=== PATIENT | male | born 1970 ===

== ENCOUNTER 2018-10-31 07:50 | Day surgery (SDC) | payer BC ==
--- OUTSIDE RECORDS SUMMARY | 2018-10-31 07:53 | XMS REPORT ---
:1970 Author Organization eClinicalWorks Care Team Providers Name Role Phone Ronal Martins Provider Role Unavailable Allergies No Known Allergies Problems Problem Type Condition Code Onset Dates Condition Status Assessment Low testosterone in male R79.89 Active Problem Mixed hyperlipidemia E78.2 Active Problem Decreased libido R68.82 Active Problem Essential hypertension I10 Active Problem Fatigue, unspecified type R53.83 Active Problem Tobacco use disorder F17.200 Active Problem Erectile dysfunction, unspecified N52.9 Active erectile dysfunction type Medications No Known Medications Results Name Result Date Reference Range Unit Abnormality Flag PROLACTIN ----PROLACTIN 6.0 20180925 2.0-18.0 ng/mL N Summary Purpose eClinicalWorks Submission
--- OUTSIDE RECORDS SUMMARY | 2018-10-31 07:53 | XMS REPORT ---
:1970 Author Organization [employer] Care Team Providers Name Role Phone Ronal Martins Provider Role Unavailable Allergies, Adverse Reactions, Alerts Substance Reaction Event Type N.K.D.A. Info Not Available Non Drug Allergy Problems Problem Type Condition Code Onset Dates Condition Status Assessment Erectile dysfunction, unspecified N52.9 Active erectile dysfunction type Assessment Essential hypertension I10 Active Assessment Mixed hyperlipidemia E78.2 Active Assessment Tobacco use disorder F17.200 Active Assessment Decreased libido R68.82 Active Assessment Fatigue, unspecified type R53.83 Active Problem Mixed hyperlipidemia E78.2 Active Problem Decreased libido R68.82 Active Problem Essential hypertension I10 Active Problem Fatigue, unspecified type R53.83 Active Problem Tobacco use disorder F17.200 Active Problem Erectile dysfunction, unspecified N52.9 Active erectile dysfunction type Medications Medication Code Code Instructions Start End Status Dosage System Date Date Amoxicillin ND 36411690749 875 MG Orally Active 1 tablet every 12 hrs Rosuvastatin ND 79007026924 10 MG Orally Active 1 tablet Calcium Once a day Diltiazem HCl CR NDC 0 180 MG/24HR Active 1 capsule Orally Once a on an day empty stomach in the morning Diltiazem HCl ER NDC 25958524895 180 MG Orally Sep 17, Active 1 capsule Once a day 2017 on an empty stomach in the morning Results No Known Results Summary Purpose eClinicalWorks Submission
--- OUTSIDE RECORDS SUMMARY | 2018-10-31 07:53 | XMS REPORT ---
:1970 Author Organization [employer]ClinicalWorks Care Team Providers Name Role Phone Ronal Martins Provider Role Unavailable Allergies, Adverse Reactions, Alerts Substance Reaction Event Type N.K.D.A. 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 Active Assessment Adult BMI 34.0-34.9 kg/sq m Z68.34 Active Problem Essential hypertension I10 Active Problem Adult BMI 34.0-34.9 kg/sq m Z68.34 Active Problem Tobacco use disorder F17.200 Active Problem Erectile dysfunction, unspecified N52.9 Active erectile dysfunction type Problem Mixed hyperlipidemia E78.2 Active Problem Decreased libido R68.82 Active Assessment Need for Tdap vaccination Z23 Active Assessment 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 Active Assessment Screening for colon cancer Z12.11 Active Assessment Need for pneumococcal vaccine Z23 Active Assessment Fatigue, unspecified type R53.83 Active Assessment Erectile dysfunction, unspecified N52.9 Active erectile dysfunction type Assessment Tobacco use disorder F17.200 Active Assessment Mixed hyperlipidemia E78.2 Active Assessment Decreased libido R68.82 Active Assessment Essential hypertension I10 Active Medications Medication Code Code Instructions Start End Status Dosage System Date Date Rosuvastatin [facility] 10379879309 10 MG Orally Active 1 tablet Calcium Once a day Chantix Starting [facility] 96788184207 0.5 MG X 11 & 1 Oct 08, Active as directed Month Rigoberto MG X 42 Orally 2019 as directed Diltiazem HCl ER ND 47125012680 180 MG Orally Active 1 capsule Once a day on an empty stomach in the morning Results Name Result Date Reference Range Unit Abnormality Flag HEMOGLOBIN A1c ----HEMOGLOBIN A1c 4.8 31639903 <5.7 % of total N Hgb LIPID PANEL WITH REFLEX TO DIRECT LDL ----NON HDL 141 50311417 <130 mg/dL (calc) H CHOLESTEROL ----CHOL/HDLC RATIO 3.9 37449326 <5.0 (calc) N ----CHOLESTEROL, 190 58490049 <200 mg/dL N TOTAL ----HDL CHOLESTEROL 49 56350884 >40 mg/dL N ----TRIGLYCERIDES 205 20991354 <150 mg/dL H ----LDL-CHOLESTEROL 109 06551623 mg/dL (calc) H URINALYSIS, COMPLETE W/REFLEX TO CULTURE ----KETONES 1+ 20181008 NEGATIVE A ----BILIRUBIN NEGATIVE 21091911 NEGATIVE N ----PROTEIN NEGATIVE 40199557 NEGATIVE N ----OCCULT BLOOD NEGATIVE 51472878 NEGATIVE N ----LEUKOCYTE NEGATIVE 20181008 NEGATIVE N ESTERASE ----WBC NONE SEEN 06771037 < OR=5 /HPF N ----NITRITE NEGATIVE 56859179 NEGATIVE N ----BACTERIA NONE SEEN 20181008 NONE SEEN /HPF N ----PH < OR=5.0 20181008 5.0-8.0 N ----HYALINE CAST NONE SEEN 20181008 NONE SEEN /LPF N ----GLUCOSE NEGATIVE 20181008 NEGATIVE N ----RBC NONE SEEN 20181008 < OR=2 /HPF N ----APPEARANCE CLEAR 20181008 CLEAR N ----SQUAMOUS NONE SEEN 01291388 < OR=5 /HPF N EPITHELIAL CELLS ----SPECIFIC GRAVITY 1.027 20181008 1.001-1.035 N ----COLOR YELLOW 20181008 YELLOW N Immunizations Vaccine Administration Date TDAP > 7 Years-Adacel Oct 08, 2018 PNEUMAVAX 23 Oct 08, 2018 Summary Purpose eClinicalWorks Submission
[2018-10-31] MEDS ORDERED: Ringers Lactate 1,000 ML IV ONE (08:05)
[2018-10-31] MEDS ORDERED: PROPOFOL 200 MG/20 ML VIAL IV ONE (09:26)
[2018-10-31] MEDS ORDERED: LIDOCAINE 1% MPF 5 ML VIAL ONE (09:26)
--- NOTE | 2018-10-31 09:45 | ENDO RPT ---
[address], [address] COLONOSCOPY PROCEDURE REPORT EXAM DATE: 10/31/2018 PATIENT NAME: Garrick Duron MR #: [id number] BIRTHDATE: 1970 ATTENDING: Mack Hernandez DR STATUS: outpatient COMPUTER SYSTEMS ARCHITECT: Ana Lewis RN, Kim Saenz, and Alicia Rodriges RN INDICATIONS: The patient is a 48 yr old Male here for a colonoscopy due to colon cancer screening PROCEDURE PERFORMED: Colonoscopy with biopsy - cold polypectomy MEDICATIONS: Per Anesthesia. ESTIMATED BLOOD LOSS: None CONSENT: The patient understands the risks and benefits of the procedure and understands that these risks include, but are not limited to: sedation, allergic reaction, infection, perforation and/or bleeding. Alternative means of evaluation and treatment include, among others: physical exam, x-rays, and/or surgical intervention. The patient elects to proceed with this endoscopic procedure. DESCRIPTION OF PROCEDURE: During intra-op preparation period all mechanical medical equipment was checked for proper function. Hand hygiene and appropriate measures for infection prevention was taken. Procedure, possible complications, alternatives including, but not limited to possibility of bleeding, perforation, tear, infection, sepsis, need for surgery, need for blood transfusion, were explained to the patient. After the risks, benefits and alternatives of the procedure were thoroughly explained, Informed consent was verified, confirmed and timeout was successfully executed by the treatment team. The patient was placed in the left lateral position. A digital rectal exam was performed and revealed an enlarged prostate and A digital rectal exam was performed and revealed internal hemorrhoids. After appropriate level of anesthesia, the scope was passed. The [id number] ([id number]) endoscope was introduced through the anus and advanced to the cecum, which was identified by both the appendix and ileocecal valve. The quality of the prep was good. The instrument was then slowly withdrawn as the colon was fully examined. Scope withdrawal time was 10 minutes. COLON FINDINGS: A small smooth sessile polyp was found in the rectum. A polypectomy was performed with cold forceps. The resection was complete, the polyp tissue was completely retrieved and sent to histology. Retroflexed views revealed no abnormalities. The scope was then completely withdrawn from the patient and the procedure terminated. ADVERSE EVENTS: There were no complications. IMPRESSIONS: Small sessile polyp was found in the rectum; polypectomy was performed in a piecemeal fashion with cold forceps RECOMMENDATIONS: 1. avoid NSAIDS for 2 weeks 2. await biopsy results 3. fiber rich diet 4. follow-up: office 2 week(s) 5. hemorrhoidal hygiene RECALL: Return in 5 year(s) for Colonoscopy, pending biopsy results. Mack Hernandez DR eSigned: Mack Hernandez DR 10/31/2018 9:45 AM cc: CPT CODES: ICD9 CODES: PATIENT NAME: Garrick Duron MR#: [id number]
== END 2018-10-31 10:07 | disposition home or self-care (01) ==
LOC: OR 07:50
PROVIDERS: ATTEND Surgery
PROC: 0DBP8ZX Excision of Rectum, Via Natural or Artificial Opening Endoscopic, Diagnostic (ICD-10-PCS; principal; 2018-10-31 08:45)
DX: Z12.11 Encounter for screening for malignant neoplasm of colon (principal); K62.1 Rectal polyp; K64.8 Other hemorrhoids; N40.0 Benign prostatic hyperplasia without lower urinary tract symptoms; I10 Essential (primary) hypertension; E78.2 Mixed hyperlipidemia; Z72.0 Tobacco use; N52.9 Male erectile dysfunction, unspecified; Z83.3 Family history of diabetes mellitus; Z82.49 Family history of ischemic heart disease and other diseases of the circulatory system
CPT/HCPCS: 88305; J2704